=== PATIENT | female | born 1990 | race Hispanic/Latino ===

== ENCOUNTER 2021-03-11 11:32 | Outpatient (RCR) | payer OTHER, SELFPAY ==
[2021-03-10 19:25] VITALS: BP 102/62; PULSE 82
[2021-03-10 19:49] LABS: Alanine Aminotransferase 10 U/L (4-35); Albumin Level 3.9 g/dL (3.5-5.1); Alkaline Phosphatase 147 U/L (38-126); Anion Gap 6 mmol/L (8-16); Aspartate Amino Transferase 21 U/L (14-36); Bilirubin,Total 0.6 mg/dL (0.2-1.3); Blood Urea Nitrogen 7 mg/dL (7-17); Calcium 9.4 mg/dL (8.4-10.2); Carbon Dioxide 20 mmol/L (22-30); Chloride 106 mmol/L (98-107); Estimated Glomerular Filt Rate > 60; Glucose 90 mg/dL (65-110); Potassium 3.8 mmol/L (3.4-5.0); Sodium 132 mmol/L (137-145)
--- NOTE | ~2021-03-11 | US_ITS ---
EXAMINATION: US OB limited w BPP DATE: 03/11/2021 12:43 CLINICAL LAB TECHNOLOGIST INDICATION: decelerations TECHNIQUE: Real-time transabdominal obstetric ultrasound. FINDINGS: No prior studies for comparison. There is a single living fetus in vertex presentation. The placenta is posterior without placenta pr evia. MANISH is normal measuring 10.3 cm. cardiac activity and movement is noted with a heart rate of 127 beats per minute. Biophysical profile: breathin of 2 movement: 2 of 2 tone: 2 of 2 Amniotic flud pocket: 2 of 2 Total score: 8 of 8 IMPRESSION: 1. Single living intrauterine in vertex presentation. 2: Total biophysical profile score of 8/8. Reviewed, dictated and finalized at location B. ICAL LAB TECHNOLOGIST
[2021-03-11 13:23] VITALS: BP 107/62; PULSE 116
[2021-03-16 22:03] LABS: Chenodeoxycholic Acid 0.6 umol/L (< OR = 3.9); Cholic Acid <0.5 umol/L (< OR = 2.8); Deoxycholic Acid <0.5 umol/L (< OR = 2.3); Total Bile Acids <1.5 umol/L (< OR = 8.3)
== END 2021-04-08 13:18 | disposition home or self-care (01) ==
LOC: ANHOBOP 11:32
PROVIDERS: Visit Provider Obstetrics & Gynecology
DX: O36.8330 Maternal care for abnormalities of the fetal heart rate or rhythm, third trimester, not applicable or unspecified (principal); Z3A.36 36 weeks gestation of pregnancy
CPT/HCPCS: 36415; 59025; 76815; 76819; 80053; 82542

== ENCOUNTER 2021-03-29 06:26 | Inpatient (IN) | payer OTHER, SELFPAY ==
[2021-03-29] VITALS (100 sets, daily range): BP systolic 74–123; BP diastolic 30–91; PULSE 72–131; RESP 16; TEMP 36.4–36.8; O2SAT 90–100; BMI 42.1
[2021-03-29] MEDS: OXYTOCIN 30 UNITS/NS 500 ML 30 UNITS/500 ML BAG IV CONT (07:06)
[2021-03-29] MEDS: AMPICILLIN 2 GM/NS 100 ML 2 GM/100 ML BAG IVPB (07:06)
[2021-03-29] MEDS: LACTATED RINGERS 1,000 ML 125 ML IV CONT ×2 (07:06→11:37)
[2021-03-29 07:14] LABS: Basophils Absolute Auto 0.1 K/mm3 (0.0-0.1); Basophils Percent Auto 0.5 % (0.2-1.2); Eosinophils Absolute Auto 0.2 K/mm3 (0-0.3); Hemoglobin 10.5 g/dL (12.0-15.0); Immature Granulocyte Absolute 0.06 K/mm3 (0.00-0.031); Immature Granulocyte Percent A 0.7 % (0-0.5); Lymphocytes Percent Auto 28.2 % (18.3-44.2); Mean Corpuscular HGB Conc 31.8 g/dl (32-36); Mean Corpuscular Hemoglobin 24.2 pg (26-34); Mean Corpuscular Volume 76.2 fl (80-100); Mean Platelet Volume 10.4 fl (7.4-10.4); Monocytes Absolute Auto 0.7 K/mm3 (0.1-0.6); Monocytes Percent Auto 7.2 % (2.6-8.5); Neutrophils Absolute Auto 5.7 K/mm3 (1.3-6.7); Neutrophils Percent Auto 61.4 % (45.5-73.1); Platelet Count Result 245 k/mm3 (150-375); Red Blood Count 4.33 M/mm3 (4.2-5.4); Red Cell Distribution Width 14.5 % (11.5-14.5); White Blood Count 9.2 K/mm3 (4.5-10.0)
--- NOTE | 2021-03-29 07:14 | LDADM ---
This patient, Mora Renae, was admitted to Labor/Delivery/Recovery 107 on 03/29/21 at 06:26. Plans for labor, pain management and were discussed with patient. Patient/family oriented to hospital policies and general routines including ID bracelet, bed and alarms, visiting hours, pain management, procedures, bathroom and other care routines, personal items, smoking policy, room service/diet and guest tray routines, security routines, and visiting hours. Patient/Family are encouraged to report perceived risks to care and to ask questions if they do not understand what they are told or what they should do. See OBIX for further documentation.
[2021-03-29 09:59] LABS: Rapid Plasma Reagin Non-Reactive (NonReactive)
--- NOTE | 2021-03-29 10:32 | PM.IMHP ---
H&P: HPI History of Present Illness Date/Time: 03/29/21 10:19 Mora is a 30yo @ 39.0wks (THEODORE [birth year]) who presents for elective induction of labor. She reports good movement. No Vb or LOF. Has been having irregular contractions on and off. She has had regular care w/o issues. Her has been complicated by: - Obesity - Group B strep carrier - Varicella non-immune - Mild anemia on iron Chief Complaint: induction of labor Review of Systems Review of Systems: All systems reviewed & are unremarkable except as noted in HPI and below (HPI) PMFSH Family History Family History Father Diabetes mellitus Liver cancer Grandparent Diabetes mellitus Liver cancer Other Patient's father is Social History Social History Smoking status: Former smoker Substance use: never Spiritual care concerns: No Meds Home Medications and Allergies Home Medications Medication Instructions Recorded Confirmed Type ferrous sulfate 325 mg PO DAILY 03/12/21 03/12/21 History loratadine [Claritin] 10 mg PO DAILY 03/12/21 03/12/21 History prenat.vits,teresa,cch-[id number] 1 tablet PO DAILY 03/12/21 03/12/21 History [ #2] Allergies Allergy/AdvReac Type Severity Reaction Status Date / Time No Known Drug Allergies Allergy Unknown Verified 04/13/18 19:23 Vital Signs Vital Signs - 24 hr 03/29/21 07:29 03/29/21 07:37 03/29/21 07:46 Temperature 36.4 C Pulse Rate 92 88 Blood Pressure 103/57 L 109/70 03/29/21 08:01 03/29/21 08:16 03/29/21 08:31 Temperature Pulse Rate 77 83 87 Blood Pressure 108/65 108/57 L 99/58 L 03/29/21 08:46 03/29/21 09:01 03/29/21 09:31 Temperature Pulse Rate 81 86 86 Blood Pressure 108/65 92/44 L 102/60 03/29/21 10:01 Temperature Pulse Rate 89 Blood Pressure 107/63 Exam Const: General: cooperative, comfortable and no acute distress Nutritional Appearance: obese Resp: Effort & Inspection: normal respiratory effort Cardio: Rate: regular rate GI: Inspection: normal to inspection and non-distended GI Palp: No abdominal tenderness and Yes Soft to palpation : Other: FHT's: 120's/ mod sera/ + accels/ occasional mild variables - cat 2, reassuring TOCO: ctx's q 2-3min Cervix: 4.5/50/-2 Membranes: AROM, clear 1030 Presentation: cephalic Pitocin: 6mU Skin: General skin exam: normal color Neuro: General: patient oriented x3 Extrem: General: normal to inspection Psych: Appearance: grossly normal Affect: normal affect Attitude: cooperative H&P: Results Labs Labs: Short CBC 03/29/21 Range/Units 07:04 WBC 9.2 (4.5-10.0) K/mm3 Hgb 10.5 L (12.0-15.0) g/dL Hct 33.0 L (37.0-47.0) % Plt Count 245 (150-375) k/mm3 Assessment and Plan Assessment and plan (1) Encounter for elective induction of labor: Code(s): Z34.90 - Encounter for supervision of normal , unspecified, unspecified trimester Status: Acute (2) : Qualifiers: Weeks of gestation: 39 weeks Qualified Code(s): Z3A.39 - 39 weeks gestation of Code(s): Z34.90 - Encounter for supervision of normal , unspecified, unspecified trimester Status: Acute (3) Group B Streptococcus carrier state affecting : Code(s): O99.820 - Streptococcus B carrier state complicating Status: Acute Additional Plan - Admitted to L&D this morning for elective IOL - Pitocin per protocol - Ampicillin ppx for GBS + - Continuous monitoring; currently reassuring - Anesthesia consult PRN pain
--- NOTE | 2021-03-29 10:32 | WPDHPUPDATE1 ---
History and Physical Update Update Date/Time: 03/29/21 10:32 History and Physical has been reviewed, including an updated exam of the patient. There are NO changes in the patient's condition. Risks, benefits, and alternatives have been discussed and questions answered. Patient agrees to proceed with procedure.
[2021-03-29] MEDS: AMPICILLIN 1 GM/NS 50 ML 1 GM/50 ML BAG IVPB ×2 (11:08→15:05)
--- NOTE | 2021-03-29 15:46 | PM.OBPRVD ---
OB - Delivery Note Procedure Delivery date: 03/29/21 events: Labor Induction Intrapartal events: None Induction method: per pitocin protocol Delivery augmentation: rupture of membranes Delivery monitor: external FHT and external uterine Route of delivery: Laceration Description: None Quantitative Blood Loss (ml): 200 Anesthesia type: Epidural Disposition: floor [place] Baby Date of : 03/29/21 Time of : 15:33 Weeks of gestation at delivery: 39 Infant gender: Male Weight (pounds): 7 Weight (ounces): 10 presentation: vertex position: Left Occiput Anterior Placenta delivery description: Expressed cord vessel description: 3 Vessels, Nuchal Cord, Loose and Delayed Cord Clamping score one minute: 9 score five minutes: 9 Narrative: Mora made adequate change to complete dilation with a strong desire to push. After 4 pushes she delivered the head over intact perineum. Nuchal cord was noted but loose and delivered through. She easily delivered the 's shoulders and body without complication. The infant was immediately placed skin to skin and had spontaneous cry. Delayed cord clamping was performed. The umbilical cord was then clamped and cut. A segment of the cord was collected for cord gases. The remaining cord blood was collected for typing. With Pitocin running and gentle downward traction on the cord, the placenta delivered without complications. Bimanual massage was performed and good uterine tone with minimal bleeding was noted. The patient was examined and no lacerations were noted. Good tone and minimal bleeding remained. Sponge, lap, instrument, and needle counts were correct at the end of the procedure. Mom and baby were left bonding in the birthing suite in stable condition.
[2021-03-29] MEDS: OXYTOCIN 30 UNITS/NS 500 ML 30 UNITS/500 ML BAG 125 UNITS IV CONT (16:19)
--- NOTE | 2021-03-29 18:35 | OBPPTRN ---
1835- Patient transferred to post room #292 via wheelchair. Support person present. Oriented to unit, room, information board, rooming in, admission packet and security measures. Patient verbalizes understanding.
[2021-03-29] MEDS: IBUPROFEN 600 MG TABLET PO (21:17)
[2021-03-30 00:05] VITALS: BP 98/48; PULSE 77; RESP 18; TEMP 36.9; O2SAT 100
[2021-03-30 04:00] VITALS: BP 104/55; PULSE 73; RESP 18; TEMP 36.9; O2SAT 98
[2021-03-30 05:06] LABS: Hematocrit 31.9 % (37.0-47.0)
--- NOTE | 2021-03-30 07:37 | PM.OBPNVD ---
OB - PN: Subj Subjective Date/time seen: 03/30/21 07:37 PPD#1 Mora reports doing well today. She reports her bleeding is light. Her pain is controlled with PO meds. She has tolerated regular diet, voided, passed gas and ambulated. She is breast feeding. She would like her son to be circumcised, but he is currently under bili lights. She denies CP, SOB, fever, chills, N/V, SNEED, vision changes, dizziness or palpitations. OB - PN: Obj Data Labs CBC & Chem 7: 03/30/21 04:14 Labs: Laboratory Results - last 24 hr 03/29/21 03/29/21 03/30/21 07:04 07:04 04:14 Hgb 10.0 L Hct 31.9 L RPR Non-reactive Blood Type O Positive Antibody Screen Negative OB - PN A/P Assessment and Plan (1) Normal vaginal delivery: Code(s): O80 - Encounter for full-term uncomplicated delivery Status: Acute Plan day: 1 Plan: routine care and discharge home (tomorrow) Time Spent With Patient Time: Total time spent is greater than 50% in coordination of care (as documented) at patient's floor/unit and/or counseling patient: Review of Systems Review of Systems: All systems reviewed & are unremarkable except as noted in HPI and below (HPI) Exam Const: General: cooperative, comfortable and no acute distress Nutritional Appearance: obese Resp: Effort & Inspection: normal respiratory effort Auscultation: clear to auscultation bilaterally Cardio: Rate: regular rate GI: Inspection: normal to inspection and non-distended GI Palp: No abdominal tenderness and Yes Soft to palpation Auscultation: normal bowel sounds : Other: fundus firm Skin: General skin exam: normal color Neuro: General: patient oriented x3 Extrem: General: normal to inspection Psych: Appearance: grossly normal Affect: normal affect Attitude: cooperative
[2021-03-30 07:45] VITALS: BP 98/59; PULSE 71; RESP 16; TEMP 36.6; O2SAT 98
[2021-03-30] MEDS: IBUPROFEN 600 MG TABLET PO (08:07)
[2021-03-30] MEDS: DOCUSATE SODIUM 100 MG CAPSULE PO (08:08)
[2021-03-30] MEDS: MULTIVIT/MIN/PREN/FOL AC/IRON TABLET 1 TAB PO (08:08)
--- NOTE | 2021-03-30 08:53 | WPDANLDPN2 ---
Anes-Prog Note L&D Date/Time: 03/30/21 08:53 Comfortable throughout: labor and delivery Neuraxial method: epidural Epidural/Spinal procedure site: clean & non-tender Neuro status: Neuro function grossly intact. Cardiovascular status: normal Respiratory status: normal Airway patency: baseline Mental status: baseline Post-Op hydration status: normal Vital Signs: Last Vital Signs Temp 36.9 C 03/30/21 04:00 Pulse 73 03/30/21 04:00 Resp 18 03/30/21 04:00 BP 104/55 L 03/30/21 04:00 Pulse Ox 98 03/30/21 04:00 Pain score (VAS): 0 I/O: Intake & Output 03/29/21 03/30/21 03/30/21 23:59 07:59 15:59 Intake Total 1500 Output Total 1235 Balance 265 Post-procedural complaints: none Patient feedback: Patient satisfied with anesthetic care.
--- NOTE | 2021-03-30 11:45 | PC.NURSE ---
Consult with pt., mother reports is eagerly feeding with slight tenderness. This is mother?s 3rd child to breastfeed. Reviewed feeding cues, frequencies, duration of feedings, feeding elimination flow sheet, and signs of adequate intake. Demonstrated stimulation techniques to wake for feeding. Reviewed signs of a correct latch, effective nursing and suck swallow ratio. Nipple care reviewed of lanolin after feedings and warm compresses as needed. Requested mother to call out for RN/LC assistance next feeding to assess latch due reported nipple tenderness. Instructed feeding should be initiated three hours from start of last feeding or if feeding cues are noted before. Mother voiced understanding of information shared.
[2021-03-30 11:53] VITALS: BP 105/64; PULSE 72; RESP 16; TEMP 36.2; O2SAT 100
--- NOTE | 2021-03-30 14:45 | PC.NURSE ---
Mother called out for assist with feeding. Mother has to breast in shallow latch in cradle positioning. Requested mother break latch and attempt with cross cradle. Infant is able to freely thrust tongue past gum ridge and flange both lips. Skin is intact on both nipples, no redness and bruising noted. Reviewed infant feeding cues, frequencies, duration of feedings, feeding elimination flow sheet, and signs of adequate intake. Demonstrated stimulation techniques to wake infant for feeding. Assisted with to breast. Reviewed positioning/alignment in cross cradle, holding breast in ?U? hold and guided asymmetrical latch on. Reviewed rational for each. Infant able to latch correctly within a few attempts. nursed eagerly with steady draws and occasional swallowing noted, some pausing noted. Reviewed signs of a correct latch, effective nursing and suck swallow ratio. Suggested mother stimulate while feeding to increase stimulation for milk supply, for increased intake and to assist with maintaining deep latch. will fight latch pushing nipple out slipping to shallow latch causing tenderness. Demonstrated how to adjust latch more deeply while feeding as needed. Mother reports she can feel the difference in latch with no tenderness. Nipple care reviewed of lanolin after feedings, warm compresses as needed. Instructed mother to call out for RN assistance if she is unable to latch for feeding or she has discomfort with nursing. Instructed feeding should be initiated three hours from start of last feeding or if feeding cues are noted before. Mother voiced understanding of information shared.
[2021-03-30 18:45] VITALS: BP 108/68; PULSE 83; RESP 18; TEMP 36.6
[2021-03-31] MEDS: IBUPROFEN 600 MG TABLET PO ×2 (00:30→10:19)
[2021-03-31] MEDS: ACETAMINOPHEN 325 MG TABLET 650 MG PO ×2 (00:31→10:18)
[2021-03-31 08:00] VITALS: PULSE 75; RESP 16; O2SAT 97
[2021-03-31 08:30] VITALS: BP 100/62; PULSE 75; RESP 16; TEMP 37.2; O2SAT 97
[2021-03-31] MEDS: MULTIVIT/MIN/PREN/FOL AC/IRON TABLET 1 TAB PO (10:19)
--- NOTE | 2021-03-31 10:36 | PC.NURSE ---
Patient viewed the discharge video Mother & Baby Care, The First Two Weeks . Patient was given the opportunity and encouraged to ask questions. Patient verbalized understanding of information shared and has been given the mother/baby guide for home reference.
[2021-03-31] MEDS: MEASLES,MUMPS,RUBELLA VACCINE 0.5 ML VIAL SUB-Q (15:32)
[2021-04-01 09:18] VITALS: BP 104/65; PULSE 77; RESP 20; TEMP 36.8; O2SAT 100
--- NOTE | 2021-04-01 15:08 | PM.OBDSVD ---
DS: Admitting Diagnosis Discharge Date 03/31/21 Admitting Diagnosis induction of labor DS: Discharge Diagnosis Discharge Diagnosis (1) Normal vaginal delivery: Code(s): O80 - Encounter for full-term uncomplicated delivery Status: Acute OB - DS: Summary OB Procedures : NST and Ultrasound OB Procedures Intrapartum: Spontaneous Vag Delivery OB Procedures: : None Peripartum Data Infant Delivery Method: Natural Vaginal Laceration Description: None complications: none [place] 1: Gender: Male Disposition of : home Status at Discharge Functional status at discharge: independent ambulation Overall status at discharge: patient is back to baseline Time Spent with Patient Time attestation: Total time spent providing and/or coordinating discharge services: Time spent: Less than 30 minutes Exam Const: General: cooperative, comfortable and no acute distress Nutritional Appearance: obese Resp: Effort & Inspection: normal respiratory effort Auscultation: clear to auscultation bilaterally Cardio: Rate: regular rate GI: Inspection: normal to inspection and non-distended GI Palp: No abdominal tenderness and Yes Soft to palpation Auscultation: normal bowel sounds : Other: fundus firm Skin: General skin exam: normal color Neuro: General: patient oriented x3 Extrem: General: normal to inspection Psych: Appearance: grossly normal Affect: normal affect Attitude: cooperative Discharge Plan Discharge Attending physician on discharge: Kandice Menjivar Discharging Clinician: Kandice Menjivar Anticipated Discharge Date/Time: 03/31/21 11:00 Patient Disposition: Home, Self-Care Activity: pelvic rest Diet: regular Discharge Instructions: Education: Mom and Baby Guide Given to: Mother Follow-Up: Call your delivering provider's office for an appointment to be seen in: 1 Week Mom and baby should come to the [facility] for the follow-up appointment. Appointment Date/Time: March at 9:00 a.m. What to expect at your follow-up visit: Blood Pressure Check Physical Assessment Call [phone] if you are unable to keep your appointment time. BREAST CARE: * Wear a snug supportive bra. * For engorgement discomfort: Breast Feeding: * Apply warm moist washcloths * Express milk as needed to relieve engorgement * Wear loose clothing * For sore nipples: * Identify correct latch-on * Apply warm moist washcloths before and after nursing * Air dry nipples after nursing * May apply Lansinoh cream to nipples EPISIOTOMY/PERINEAL CARE: * Until bleeding stops, use your nhan bottle after urinating * Change your pad frequently throughout the day * You may take sitz baths several times a day (fill your bathtub with warm water and soak for 20 minutes.) Do NOT bathe in the water * No tub baths until seen by your physician - You may shower ACTIVITY: * Rest as much as possible. * Do not exercise or lift anything heavier than your baby (such as laundry or other children.) * Avoid stairs or driving as much as possible. * Do not put anything into the vagina. No douching, tampons, or sexual activity until seen by physician. NOTIFY PHYSICIAN IF YOU HAVE ANY QUESTIONS OR IF ANY OF THE FOLLOWING SYMPTOMS OCCUR: * If your vaginal bleeding becomes foul smelling. * If your vaginal bleeding becomes more heavy than a period or if your bleeding changes from pink to bright red. However, you may pass an occasional walnut-sized clot once or twice for the first week . * If you experience a sharp, shooting pain in you calves. * If you discover a hard, reddened area on your breast or if you experience flu-like symptoms. DIET: * Eat regular, well-balanced meals. * Drink plenty of fluids daily. If , drink to thirst. Sta
== END 2021-03-31 16:44 | disposition home or self-care (01) | DRG 560 ==
LOC: ANHLDR 06:26 → ANHOB2 19:59
PROVIDERS: Admitting Provider Obstetrics & Gynecology; Visit Provider Obstetrics & Gynecology
DX: O99.824 Streptococcus B carrier state complicating childbirth (principal); Z37.0 Single live birth; Z3A.39 39 weeks gestation of pregnancy; O99.214 Obesity complicating childbirth; E66.9 Obesity, unspecified; O99.02 Anemia complicating childbirth; D64.9 Anemia, unspecified; O69.81X0 Labor and delivery complicated by cord around neck, without compression, not applicable or unspecified
CPT/HCPCS: 36415; 85014; 85018; 85025; 86592; 86850; 86900; 86901; 90710; A9270; J0290; J2590; J2795; J7120